=== PATIENT | male | born 1950 | race Caucasian/White ===

== ENCOUNTER 2020-02-11 02:22 | Emergency (ER) | payer BC, MEDICARE ==
[~2020-02-11] VITALS: Ht 177.8 cm; Wt 86.4 kg
[2020-02-11] MEDS ORDERED: OXYMETAZOLINE 0.05% NASAL SPRAY 30ML BOTTLE. NS ONE ×2 (02:46→03:15)
--- NOTE | 2020-02-11 03:07 | PHYS DOC ---
General Adult EDM: Chief Complaint: NOSEBLEED HPI: HPI: Patient is a 69 year old male who presents with nosebleed. Patient reports that he has been having some troubles with a nosebleed now for about 48 hours. He reports that he was at home sitting down when the nosebleed started on Friday. It was a minor bleed and was associated with the right nares. He reports it went down the back of his throat and out of his nose. He also denied any sneezing, coughing or trauma at the time of the initial event. Patient does take blood thinners Eliquis and aspirin daily. Patient has a history of A. fib and has had cardiac ablation. Patient denies any fever, chills or sweats. He denied any chest pain or change in exercise tolerance. He does report occasional cough that is productive of a thin clear sputum without change in taste or smell, fever or chills. He reports that he has shortness of breath described as inability to take a deep breath at times. Review of Systems: Review of Systems: Constitutional: Denies fever or chills. [] Eyes: Denies change in visual acuity. [] HENT: See HPI [] Respiratory: Denies cough. [] Cardiovascular: Denies chest pain or edema. [] GI: Denies abdominal pain, nausea, vomiting, bloody stools or diarrhea. [] : Denies dysuria. [] Musculoskeletal: Denies back pain or joint pain. [] Integument: Denies rash. [] Neurologic: Denies headache, focal weakness or sensory changes. [] Endocrine: Denies polyuria or polydipsia. [] Lymphatic: Denies swollen glands. [] Psychiatric: Denies depression or anxiety. [] Heart Score: Risk Factors: Risk Factors: DM, Current or recent (<one month) smoker, HTN, HLP, family history of CAD, obesity. Risk Scores: Score 0 - 3: 2.5% MACE over next 6 weeks - Discharge Home Score 4 - 6: 20.3% MACE over next 6 weeks - Admit for Clinical Observation Score 7 - 10: 72.7% MACE over next 6 weeks - Early Invasive Strategies Current Medications: Current Medications Medications (Trade) Dose Ordered Sig/Shaan Start Time Stop Time Status Last Admin Dose Admin Oxymetazoline HCl (Afrin) 1 spray 1X ONCE 02/11/20 03:00 8/7/20 03:01 UNV Physical Exam: PE: Constitutional: Well developed, well nourished, no acute distress, non-toxic appearance. [] HENT: Normocephalic, atraumatic, bilateral external ears normal, oropharynx moist, no oral exudates, no blood in the posterior oropharynx was noted, mild erythema the posterior oropharynx without exudative changes, right nares with an area of clotted blood on the septum without active bleeding, left nares without any evidence of active bleeding. [] Eyes: PERRLA, EOMI, conjunctiva normal, no discharge. [] Neck: Normal range of motion, no tenderness, supple, no stridor. [] Cardiovascular:Heart rate regular rhythm, grade 2/6 systolic murmur, no shift of PMI, pulses 1 out of 2 dorsalis pedis bilaterally [] Lungs & Thorax: Bilateral breath sounds clear to auscultation [] Abdomen: Bowel sounds normal, soft, no tenderness, no masses, no pulsatile masses. [] Skin: Warm, dry, no erythema, no rash. [] Back: No tenderness, no CVA tenderness. [] Extremities: No tenderness, no cyanosis, no clubbing, ROM intact, no edema. [] Neurologic: Alert and oriented X 3, normal motor function, normal sensory function, no focal deficits noted. [] Psychologic: Affect normal, judgement normal, mood normal. [] EKG: EKG: Pulse rate 47, AV sequential pacemaker with adequate capture and sensing, abnormal ECG [] Radiology/Procedures: Radiology/Procedures: [] Course & Med Decision Making: Course & Med Decision Making Pertinent Labs and Imaging studies reviewed. (See chart for details) Patient was seen upon arrival and the nares was inspected. The patient did not require any packing or any intervention other than that of Afrin nasal spray and compression. Patient's bleeding was well-controlled with that. 0550-patient was seen and examined. Patient was reevaluated on multiple occasions throughout his hospitalization here. At this time there is no evidence of an exigent medical or surgical problem. His dyspnea is vague and is not associated with orthopnea, change in exercise tolearance or PND. I did review his chest x-ray although I do think there is some mild congestive heart failure no acute cardiopulmonary process that would require admission was felt to be present. I discussed with the patient the results of all of his testing, reasons to return to treatment plan. [] Dragon Disclaimer: Dragon Disclaimer: This electronic medical record was generated, in whole or in part, using a voice recognition dictation system. Departure Departure Impression: Primary Impression: Epistaxis Additional Impression: Dyspnea Qualified Codes: R06.09 - Other forms of dyspnea Disposition: 01 HOME, SELF-CARE Condition: IMPROVED Referrals: NO PCP (PCP) Patient Instructions: Nosebleed Justicifation of Admission Dx: Justifications for Admission: Justification of Admission Dx: N/A FLACA MOREIRA MD Feb 11, 2020 03:07
[2020-02-11 03:13] LABS: BASO # 0.1 x10^3/uL (0.0-0.2); BASO % 1 % (0-3); EOS # 0.1 x10^3/uL (0.0-0.7); EOS % 1 % (0-3); HEMATOCRIT 41.6 % (39.0-53.0); HEMOGLOBIN 13.6 g/dL (13.0-17.5); LYMPH # 1.7 x10^3/uL (1.0-4.8); LYMPH % 28 % (24-48); MEAN CORPUSCULAR HEMOGLOBIN 32 pg (25-35); MEAN CORPUSCULAR HGB CONC 33 g/dL (31-37); MEAN CORPUSCULAR VOLUME 96 fL (79-100); MONO # 0.6 x10^3/uL (0.0-1.1); MONO % 10 % (0-9); NEUT # 3.6 x10^3/uL (1.8-7.7); NEUT % 60 % (31-73); PLATELET COUNT 163 x10^3/uL (140-400); RED BLOOD COUNT 4.31 x10^6/uL (4.30-5.70); RED CELL DISTRIBUTION WIDTH 14.4 % (11.5-14.5)
[2020-02-11 03:22] LABS: CALCIUM 8.9 mg/dL (8.5-10.1); CREATININE 0.8 mg/dL (0.7-1.3); GFR 95.6; POTASSIUM 4.1 mmol/L (3.5-5.1); PROTHROMBIN TIME PATIENT 15.2 SEC (11.7-14.0)
[2020-02-11 03:27] LABS: ALBUMIN 3.2 g/dL (3.4-5.0); ALBUMIN/GLOBULIN RATIO 0.8 (1.0-1.7); TOTAL BILIRUBIN 0.5 mg/dL (0.2-1.0)
--- NOTE | 2020-02-11 06:19 | RAD ---
INDICATION: Reason: SOB, cough / Spl. Instructions: / History: COMPARISON: May 09, 2004 FINDINGS: 2 view of chest obtained. Enlarged cardiac silhouette with poststernotomy changes and surgical clips as well as pacemaker. Mild interstitial prominence bilaterally. Prominence of the pulmonary mary jane again seen. Degenerative changes of the spine. Osseous demineralization. Blunting of the left costophrenic angle is again seen. IMPRESSION: * Mild interstitial prominence is again seen and can be from mild pulmonary vascular congestion. * Blunting left costophrenic angle is again seen. * Poststernotomy changes with pacemaker. Electronically signed by: Placido Boone MD (02/11/2020 6:16 AM) [id number]
[2020-02-11 06:34] VITALS: BP 149/77
--- NOTE | 2020-02-11 15:20 | EKG ---
[facility] [address] [place] [address] Test Date: 2020-02-11 Test Time: 03:31:28 Pat Name: CRISTINA BAIRES Department: Room: Gender: M Technical Services Consultant: : [id number] Requested By: FLACA MOREIRA Order Number: [id number] Reading MD: Measurements Intervals [employer] Rate: 47 P: MN: QRS: 156 QRSD: 154 T: -16 QT: 512 QTc: 453 Interpretive Statements IRREGULAR RHYTHM, NO P-WAVE FOUND ABNORMAL RIGHT AXIS DEVIATION LOW VOLTAGE RIGHT BUNDLE BRANCH BLOCK CONSIDER RIGHT VENTRICULAR HYPERTROPHY ABNORMAL ECG RI6.02 No previous ECG available for comparison
== END 2020-02-11 06:45 | disposition home or self-care (01) ==
LOC: ER 02:22
DX: R04.0 Epistaxis (principal); R06.09 Other forms of dyspnea; R05 Cough; I48.91 Unspecified atrial fibrillation; I45.10 Unspecified right bundle-branch block; R94.31 Abnormal electrocardiogram [ECG] [EKG]
CPT/HCPCS: 36415; 71046; 80053; 84484; 85025; 85610; 85730; 93005; 99285-25